=== PATIENT | male | born 1985 | race Caucasian/White ===

== ENCOUNTER 2018-09-05 11:24 | Inpatient (IN) | payer OTHER ==
[2018-09-05] MEDS ORDERED: Nicotine Inhaler* 10 MG AMP INH PRN (12:02)
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
[2018-09-05 12:56] LABS: Urine Appearance Cloudy; Urine Bacteria Absent (Absent); Urine Bilirubin Negative (Negative); Urine Blood Negative (Negative); Urine Color Yellow; Urine Glucose Negative (Negative); Urine Ketones Trace (Negative); Urine Nitrite Negative (Negative); Urine Protein Negative (Negative); Urine Red Blood Cell Absent (Absent); Urine Specific Gravity 1.024 (1.010-1.030); Urine Squamous Epithelial Cell Present (Absent); Urine Urobilinogen Negative (Negative); Urine White Blood Cell Trace(0-5/hpf) (Absent)
[2018-09-05 13:01] LABS: Barbiturates Urine Screen None Detected (None Detect); Benzodiazepine Urine Screen None Detected (None Detect); Urine Cannabinoids Screen None Detected (None Detect)
[2018-09-05 13:39] LABS: Hematocrit 46 % (42-52); Mean Corpuscular HGB Conc 33 g/dl (31-36); Mean Corpuscular Hemoglobin 31 pg (27-31); Mean Corpuscular Volume 93 fL (80-94); Red Cell Distribution Width 14 % (10.5-15); White Blood Count 15.3 10^3/ul (3.5-10.8)
[2018-09-05 13:43] LABS: Albumin 4.6 g/dL (3.2-5.2); CO2 Carbon Dioxide 24 mmol/L (22-32); Calcium 10.2 mg/dL (8.6-10.3); Chloride 102 mmol/L (101-111); Sodium 135 mmol/L (135-145)
[2018-09-05 13:49] LABS: ALT 111 U/L (7-52); Albumin/Globulin Ratio 1.2 (1-3); Alkaline Phosphatase 76 U/L (34-104); Blood Urea Nitrogen 18 mg/dL (6-24); EGFR African American 131.7 (>60); EGFR Non-African American 108.9 (>60); Globulin 3.9 g/dL (2-4); Glucose 96 mg/dL (70-100); Total Protein 8.5 g/dL (6.4-8.9)
[2018-09-05 14:00] LABS: Acetaminophen < 15 mcg/mL; Alcohol < 10 mg/dL (<10); Salicylate < 2.50 mg/dL (<30)
[2018-09-05 14:16] LABS: ABS Basophils 0.1 10^3/ul (0-0.2); ABS Eosinophils 0 10^3/ul (0-0.6); ABS Lymphocytes 1.9 10^3/ul (1.0-4.8); ABS Monocytes 0.9 10^3/ul (0-0.8); ABS Neutrophils 12.5 10^3/ul (1.5-7.7); ABS Nucleated RBC 0 10^3/ul; Eosinophil % 0 %; Lymphocyte % 12.3 %; Nucleated Red Blood Cells % 0.1
[2018-09-05 14:18] LABS: Anion Gap 9 mmol/L (2-11)
[2018-09-05 14:43] LABS: TSH (Thyroid Stimulating Horm) 1.02 mcIU/mL (0.34-5.60)
[2018-09-05] MEDS ORDERED: Nicotine GUM* 2 MG PO PRN (15:53)
[2018-09-05] MEDS ORDERED: Al Hydrox/Mg Hydrox/Simet LIQ* 30 ML UDC PO PRN (15:53)
[2018-09-05] MEDS ORDERED: Haloperidol TAB* 5 MG PO PRN (15:55)
[2018-09-05] MEDS ORDERED: Mouth Piece, Nicotine* 1 EACH CARTRIDGE INH ONE (17:00)
[2018-09-06] MEDS: Gabapentin CAP(*) 300 MG PO SCH ×2 (14:32→20:49)
--- NOTE | 2018-09-06 16:18 | PN ---
BSU: Group Therapy Note - Service Type Service Type: [id number] Group Psychotherapy - Group Participation Patient Participating in Group: No Level of Group Participation: Attentive Relatedness to Group: Other - Additional Group Comments Group Comments: Bubba came late to the group and sat through it to the end but did not participate. He was calm and pleasant and attentive.
--- NOTE | 2018-09-06 16:21 | PN ---
Subjective - Subjective Date of Service: 09/06/18 Service Type: [id number] Hosp care 15 min low complexity Subjective: Please see H&P Plan - Plan Treatment Plan: Name: JASWINDER VILLAR Birthdate: 1985 [id number] Medications: Current Medications Acetaminophen (Tylenol Tab*) 650 mg PO Q4H PRN PRN Reason: for pain; or Temp >101 F Al Hydrox/Mg Hydrox/Simethicone (Maalox Plus*) 30 ml PO Q4H PRN PRN Reason: INDIGESTION Gabapentin (Neurontin Cap(*)) 300 mg PO TID TILA Last Admin: 09/06/18 14:32 Dose: 300 mg Haloperidol (Haldol Tab*) 5 mg PO Q6H PRN PRN Reason: AGITATION Last Admin: 09/06/18 01:00 Dose: 5 mg Nicotine (Nicotine Inhaler*) 10 mg INH Q2H PRN PRN Reason: CRAVING Nicotine Polacrilex (Nicotine Gum*) 2 mg PO Q2H PRN PRN Reason: CRAVING Paliperidone (Invega Er Tab*) 3 mg PO BEDTIME TILA
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
[2018-09-06] MEDS: Paliperidone ER TAB* 3 MG TAB.ER PO SCH (20:49)
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
[2018-09-07 08:29] LABS: HDL Cholesterol 58.6 mg/dL
[2018-09-07] MEDS: Gabapentin CAP(*) 300 MG PO SCH ×3 (09:23→20:44)
--- NOTE | 2018-09-07 11:01 | PN ---
BSU: Group Therapy Note - Service Type Service Type: [id number] Group Psychotherapy - Cognitive Behavioral Group Therapy ( CBT):Patient attended CBT programming this morning and presented with flat affect that did not vary with discussion. Although responsive to direct prompts to respond to questions, patient did not engage in spontaneous conversation.
[2018-09-07] MEDS: Acetaminophen TAB* 325 MG PO PRN (20:44)
[2018-09-07] MEDS: Paliperidone ER TAB* 3 MG TAB.ER PO SCH (20:44)
--- NOTE | 2018-09-07 21:11 | PN ---
Subjective - Subjective Date of Service: 09/07/18 Service Type: [id number] Hosp care 15 min low complexity Subjective: Jaswinder is quiet today. He appears to be happy. He also states that he is feeling well and that his thoughts are clearer. He cannot be more specific. Objective - Appearance Appearance: Healthy Appearing Dysmorphic Features: No Hygiene: Normal Grooming: Well Kept - Behavior Psychomotor Activities: Normal Exhibits Abnormal Movement: No - Attitude and Relatedness Attitude and Relatedness: Cooperative Eye Contact: Good - Speech Quality: Unpressured Latencies: Short Quantity: Terse - Mood Patient's Decription of Mood: "Okay" - Affect Observed Affect: Constricted Affect Consistent with: Euthymia - Thought Process Patient's Thought Process: Coherent Thought Content: No Passive Wish, No Suicidal Planning, No Homicidal Ideation, No Paranoid Ideation - Sensorium Experiencing Hallucinations: No, Sensorium is Clear Type of Hallucinations: Visual: Yes - Not reported by Jaswinder, but reported by staff that he is responding., Auditory: Yes - As above., Command: No - Level of Consciousness Level of Consciousness: Alert Orientation: Yes Intact, Yes Orientated to Time, Yes Orientated to Place, Yes Orientated to Person - Impulse Control Impulse Control: Tenuous - Insight and Judgement Insight and Judgement: Impaired - Group Participation Particating in Group Activities: Yes - Medication Management Medication Management Adherence: Yes Assessment - Assessment Merits Inpatient Hospitalization: For Immediate Safety Clinical Impression: Jaswinder is a 33-year-old white male who comes to the hospital on a voluntary status from [facility] where he was asked to come to the hospital due to bizarre behaviors which included wearing blinders on his glasses and publicly declaring himself to be a racist as well as other behaviors that were not specified by [facility]. Plan - Plan Treatment Plan: Name: JASWINDER VILLAR Birthdate: 1985 [id number] Continued Medication Management: Different Medication Medications: Current Medications Acetaminophen (Tylenol Tab*) 650 mg PO Q4H PRN PRN Reason: for pain; or Temp >101 F Last Admin: 09/07/18 20:44 Dose: 650 mg Al Hydrox/Mg Hydrox/Simethicone (Maalox Plus*) 30 ml PO Q4H PRN PRN Reason: INDIGESTION Gabapentin (Neurontin Cap(*)) 300 mg PO TID TILA Last Admin: 09/07/18 20:44 Dose: 300 mg Haloperidol (Haldol Tab*) 5 mg PO Q6H PRN PRN Reason: AGITATION Last Admin: 09/06/18 01:00 Dose: 5 mg Nicotine (Nicotine Inhaler*) 10 mg INH Q2H PRN PRN Reason: CRAVING Nicotine Polacrilex (Nicotine Gum*) 2 mg PO Q2H PRN PRN Reason: CRAVING Paliperidone (Invega Er Tab*) 3 mg PO BEDTIME [facility] Last Admin: 09/07/18 20:44 Dose: 3 mg - Discharge Plan Discharge Plan: Outpatient Follow Up Additional Comments: Jaswinder will start Ivega 3 mg. He will benefit from a few additional days to see if some of the quietly expressed psychotic symptoms are improving.
[2018-09-08] MEDS: Gabapentin CAP(*) 300 MG PO SCH ×3 (09:31→20:44)
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
--- NOTE | 2018-09-08 15:30 | PN ---
Subjective - Subjective Date of Service: 09/08/18 Service Type: [id number] Hosp care 15 min low complexity Subjective: Jaswinder states he's doing well. He is enjoying some relief now that he has Invega on board. He appears a bit bored and lonely as he is constantly sitting by himself and trying to do complex puzzles. Objective - Appearance Appearance: Healthy Appearing Dysmorphic Features: No Hygiene: Normal Grooming: Well Kept - Behavior Psychomotor Activities: Normal Exhibits Abnormal Movement: No - Attitude and Relatedness Attitude and Relatedness: Superficially Cooperative Eye Contact: Good - Speech Quality: Unpressured Latencies: Normal Quantity: Terse - Mood Patient's Decription of Mood: "Okay" - Affect Observed Affect: Constricted Affect Consistent with: Dysphoria - Thought Process Patient's Thought Process: Coherent Thought Content: No Passive Wish, No Suicidal Planning, No Homicidal Ideation, No Paranoid Ideation - Sensorium Experiencing Hallucinations: No, Sensorium is Clear Type of Hallucinations: Visual: No, Auditory: No, Command: No - Level of Consciousness Level of Consciousness: Alert Orientation: Yes Intact, Yes Orientated to Time, Yes Orientated to Place, Yes Orientated to Person - Impulse Control Impulse Control: Tenuous - Insight and Judgement Insight and Judgement: Impaired - Group Participation Particating in Group Activities: Yes - Medication Management Medication Management Adherence: Yes Assessment - Assessment Merits Inpatient Hospitalization: For Immediate Safety Clinical Impression: Jaswinder is a 33-year-old white male who comes to the hospital on a voluntary status from [facility] where he was asked to come to the hospital due to bizarre behaviors which included wearing blinders on his glasses and publicly declaring himself to be a racist as well as other behaviors that were not specified by [facility]. Plan - Plan Treatment Plan: Name: JASWINDER VILLAR Birthdate: 1985 [id number] Medications: Current Medications Acetaminophen (Tylenol Tab*) 650 mg PO Q4H PRN PRN Reason: for pain; or Temp >101 F Last Admin: 09/07/18 20:44 Dose: 650 mg Al Hydrox/Mg Hydrox/Simethicone (Maalox Plus*) 30 ml PO Q4H PRN PRN Reason: INDIGESTION Gabapentin (Neurontin Cap(*)) 300 mg PO TID [facility] Last Admin: 09/08/18 15:07 Dose: 300 mg Haloperidol (Haldol Tab*) 5 mg PO Q6H PRN PRN Reason: AGITATION Last Admin: 09/06/18 01:00 Dose: 5 mg Nicotine (Nicotine Inhaler*) 10 mg INH Q2H PRN PRN Reason: CRAVING Nicotine Polacrilex (Nicotine Gum*) 2 mg PO Q2H PRN PRN Reason: CRAVING Paliperidone (Invega Er Tab*) 3 mg PO BEDTIME [facility] Last Admin: 09/07/18 20:44 Dose: 3 mg - Discharge Plan Discharge Plan: Outpatient Follow Up Outpatient Program: [facility] Additional Comments: Jaswinder will start Ivega 3 mg. He will benefit from a few additional days to see if some of the quietly expressed psychotic symptoms are improving. Jaswinder does not appear to be suffering from hallucinations today, at least during my interactions with him. Discharge Tuesday to unless further symptoms are revealed. He agrees to continue taking Invega while out of the hospital.
[2018-09-08] MEDS: Paliperidone ER TAB* 3 MG TAB.ER PO SCH (20:44)
[2018-09-09] MEDS: Gabapentin CAP(*) 300 MG PO SCH ×3 (08:35→20:00)
[2018-09-09] MEDS: Acetaminophen TAB* 325 MG PO PRN (11:18)
--- NOTE | 2018-09-09 14:26 | PN ---
Subjective - Subjective Date of Service: 09/09/18 Service Type: [id number] Hosp care 15 min low complexity Subjective: Bubba is seen in weekend coverage for NPP, Anika Power. He is laying in bed , relaxing, and staff report no unusual behaviors. He reports that he is looking forward to possible discharge on Tuesday and believes that he can stay with his father. He is tolerating paliperidone without untoward effects. He denies SI or HI. His exam is unremarkable for thought or behavioral disorganization. Objective - Appearance Appearance: Well Developed/Nourished Dysmorphic Features: No Hygiene: Normal Grooming: Well Kept - Behavior Psychomotor Activities: Normal Exhibits Abnormal Movement: No - Attitude and Relatedness Attitude and Relatedness: Cooperative Eye Contact: Fair - Speech Quality: Unpressured Latencies: Normal Quantity: Terse - Mood Patient's Decription of Mood: "Okay" - Affect Observed Affect: Fair Affect Consistent with: Euthymia - Thought Process Patient's Thought Process: Coherent Thought Content: No Passive Wish, No Suicidal Planning, No Homicidal Ideation, No Paranoid Ideation - Sensorium Experiencing Hallucinations: No, Sensorium is Clear Type of Hallucinations: Visual: No, Auditory: No, Command: No - Level of Consciousness Level of Consciousness: Alert Orientation: Yes Intact, Yes Orientated to Time, Yes Orientated to Place, Yes Orientated to Person - Impulse Control Impulse Control: Tenuous - Insight and Judgement Insight and Judgement: Fair - Group Participation Particating in Group Activities: Yes - Medication Management Medication Management Adherence: Yes Assessment - Assessment Merits Inpatient Hospitalization: Consolidate Improvements, Pending Safe DC Plan Inpatient DSM-V Dx: F29 Clinical Impression: Bubba is a 33-year-old white male who comes to the hospital on a voluntary status from [facility] where he was asked to come to the hospital due to bizarre behaviors which included wearing blinders on his glasses and publicly declaring himself to be a racist as well as other behaviors that were not specified by [facility]. BSU: Problem List - Patient Problems (1) Unspecified psychosis Current Visit: Yes Status: Acute Plan - Plan Treatment Plan: Name: BUBBA VILLAR Birthdate: 1985 [id number] The patient is tolerating paliperidone 3mg PO qhs and is doing better. Target discharge early this coming week. Continued Medication Management: Start Medication Medications: Current Medications Acetaminophen (Tylenol Tab*) 650 mg PO Q4H PRN PRN Reason: for pain; or Temp >101 F Last Admin: 09/09/18 11:18 Dose: 650 mg Al Hydrox/Mg Hydrox/Simethicone (Maalox Plus*) 30 ml PO Q4H PRN PRN Reason: INDIGESTION Gabapentin (Neurontin Cap(*)) 300 mg PO TID [facility] Last Admin: 09/09/18 08:35 Dose: 300 mg Haloperidol (Haldol Tab*) 5 mg PO Q6H PRN PRN Reason: AGITATION Last Admin: 09/06/18 01:00 Dose: 5 mg Nicotine (Nicotine Inhaler*) 10 mg INH Q2H PRN PRN Reason: CRAVING Nicotine Polacrilex (Nicotine Gum*) 2 mg PO Q2H PRN PRN Reason: CRAVING Paliperidone (Invega Er Tab*) 3 mg PO BEDTIME [facility] Last Admin: 09/08/18 20:44 Dose: 3 mg - Discharge Plan Discharge Plan: Inpatient Hospitalization
[2018-09-09] MEDS: Paliperidone ER TAB* 3 MG TAB.ER PO SCH (20:01)
[2018-09-10] MEDS: Gabapentin CAP(*) 300 MG PO SCH ×3 (09:06→20:18)
[2018-09-10] MEDS: Paliperidone ER TAB* 3 MG TAB.ER PO SCH (20:19)
[2018-09-11] MEDS: Gabapentin CAP(*) 300 MG PO SCH ×3 (08:48→22:19)
[2018-09-11] MEDS ORDERED: Paliperidone SUSTENNA* 234 MG/1.5 ML IM ONE (11:27)
--- NOTE | 2018-09-11 12:15 | PN ---
Subjective - Subjective Date of Service: 09/11/18 Service Type: [id number] Hosp care 15 min low complexity Subjective: Jaswinder is seen walking in the antony with a peer, but eagerly agrees to talk. I explain the option of increasing meds or using the injectable form of Invega. He quickly chooses Invega Sustenna and then advocates for himself when it seems that the choice may have been a hurried one. Nevertheless, he remains symptomatic of psychosis. He admits that he hears things that make him laugh to himself and he would like these to stop. Objective - Appearance Appearance: Healthy Appearing Dysmorphic Features: No Hygiene: Normal Grooming: Well Kept - Behavior Psychomotor Activities: Normal Exhibits Abnormal Movement: No - Attitude and Relatedness Attitude and Relatedness: Cooperative Eye Contact: Good - Speech Quality: Unpressured Latencies: Short Quantity: Terse - Mood Patient's Decription of Mood: "Fine" - Affect Observed Affect: Constricted Affect Consistent with: Euthymia - Thought Process Patient's Thought Process: Disorganized Thought Content: Yes Paranoid Ideation, No Passive Wish, No Suicidal Planning, No Homicidal Ideation - Sensorium Experiencing Hallucinations: Yes Type of Hallucinations: Visual: No, Auditory: Yes, Command: No - Level of Consciousness Level of Consciousness: Alert Orientation: Yes Intact, Yes Orientated to Time, Yes Orientated to Place, Yes Orientated to Person - Impulse Control Impulse Control: Impaired - Insight and Judgement Insight and Judgement: Impaired - Group Participation Particating in Group Activities: Yes - Medication Management Medication Management Adherence: Yes Assessment - Assessment Merits Inpatient Hospitalization: For Immediate Safety, For Stabilization, For Discharge Planning Inpatient DSM-V Dx: F29 Clinical Impression: Jaswinder is a 33-year-old white male who comes to the hospital on a voluntary status from [facility] where he was asked to come to the hospital due to bizarre behaviors which included wearing blinders on his glasses and publicly declaring himself to be a racist as well as other behaviors that were not specified by [facility]. Plan - Plan Treatment Plan: Name: JASWINDER VILLAR Birthdate: 1985 [id number] The patient is tolerating paliperidone 3mg PO qhs and is doing better. Target discharge early this coming week. Medications: Current Medications Acetaminophen (Tylenol Tab*) 650 mg PO Q4H PRN PRN Reason: for pain; or Temp >101 F Last Admin: 09/09/18 11:18 Dose: 650 mg Al Hydrox/Mg Hydrox/Simethicone (Maalox Plus*) 30 ml PO Q4H PRN PRN Reason: INDIGESTION Gabapentin (Neurontin Cap(*)) 300 mg PO TID [facility] Last Admin: 09/11/18 08:48 Dose: 300 mg Nicotine (Nicotine Inhaler*) 10 mg INH Q2H PRN PRN Reason: CRAVING Nicotine Polacrilex (Nicotine Gum*) 2 mg PO Q2H PRN PRN Reason: CRAVING Paliperidone Palmitate (Invega Sustenna*) 156 mg IM ONCE ONE Stop: 09/14/18 12:01 - Discharge Plan Discharge Plan: Outpatient Follow Up Outpatient Program: [facility] Additional Comments: Jaswinder started Ivega 3 mg. His symptoms may have diminished slightly, but he is still seen giggling to himself so a dose of Invega Sustenna 234 today and 156 mg on will be useful. At that point, he can be discharged.
[2018-09-11] MEDS: Acetaminophen TAB* 325 MG PO PRN (14:07)
[2018-09-12] MEDS: Gabapentin CAP(*) 300 MG PO SCH ×3 (07:30→21:04)
--- NOTE | 2018-09-12 10:45 | PN ---
BSU: Group Therapy Note - Service Type Service Type: [id number] Group Psychotherapy - Cognitive Behavioral Group Therapy ( CBT):Patient presented in CBT programming as disorganized and disruptive in discussion and needed repeated redirection to attend to presented materials.
[2018-09-12] MEDS: Acetaminophen TAB* 325 MG PO PRN (15:18)
[2018-09-13] MEDS: Gabapentin CAP(*) 300 MG PO SCH ×3 (07:36→20:21)
--- NOTE | 2018-09-13 11:49 | PN ---
BSU: Group Therapy Note - Service Type Service Type: [id number] Group Psychotherapy - Cognitive Behavioral Group Psychotherapy Note: Bubba continues to present with rather odd or bizarre presentation at times, appearing to respond to internal stimuli. His comments were coherent in the context of responding to direct questions, but he tends to be very direct, without spontaneous discussion.
--- NOTE | 2018-09-13 16:18 | PN ---
BSU: Group Therapy Note - Service Type Service Type: [id number] Group Psychotherapy - Medication Education Group: Patient attended group and presented with flat affect that did not vary with discussion. Although responsive to direct prompts to respond to questions, patient did not engage in spontaneous conversation.
--- NOTE | 2018-09-13 19:30 | PN ---
Subjective - Subjective Date of Service: 09/13/18 Service Type: [id number] Hosp care 15 min low complexity Subjective: Jaswinder is doing well today. He seems lost in thought much of the time, but cannot say what he's thinking about. "Just whatever," he says. He is preparing to be discharged tomorrow and is eager to leave. On the other hand, he is comfortable in this setting and states he would like to perhaps visit in the future. While he knows that this is not an option, he would still like to say goodbye to everyone. Jaswinder gives indications that he is still hearing voices, but he remains quiet about them. Objective - Appearance Appearance: Healthy Appearing Dysmorphic Features: No Hygiene: Normal Grooming: Well Kept - Behavior Psychomotor Activities: Normal Exhibits Abnormal Movement: No - Attitude and Relatedness Attitude and Relatedness: Cooperative Eye Contact: Good - Speech Quality: Unpressured Latencies: Short Quantity: Terse - Mood Patient's Decription of Mood: "Good" - Affect Observed Affect: Constricted Affect Consistent with: Euthymia - Thought Process Patient's Thought Process: Coherent Thought Content: No Passive Wish, No Suicidal Planning, No Homicidal Ideation, No Paranoid Ideation - Sensorium Experiencing Hallucinations: Yes Type of Hallucinations: Visual: No, Auditory: Yes, Command: No - Level of Consciousness Level of Consciousness: Alert Orientation: Yes Intact, Yes Orientated to Time, Yes Orientated to Place, Yes Orientated to Person - Impulse Control Impulse Control: Intact - Insight and Judgement Insight and Judgement: Impaired - Group Participation Particating in Group Activities: Yes - Medication Management Medication Management Adherence: Yes Assessment - Assessment Merits Inpatient Hospitalization: For Immediate Safety, For Discharge Planning Inpatient DSM-V Dx: F29 Clinical Impression: Jaswinder is a 33-year-old white male who comes to the hospital on a voluntary status from [facility] where he was asked to come to the hospital due to bizarre behaviors which included wearing blinders on his glasses and publicly declaring himself to be a racist as well as other behaviors that were not specified by [facility]. Plan - Plan Treatment Plan: Name: JASWINDER VILLAR Birthdate: 1985 [id number] Medications: Current Medications Acetaminophen (Tylenol Tab*) 650 mg PO Q4H PRN PRN Reason: for pain; or Temp >101 F Last Admin: 09/12/18 15:18 Dose: 650 mg Al Hydrox/Mg Hydrox/Simethicone (Maalox Plus*) 30 ml PO Q4H PRN PRN Reason: INDIGESTION Gabapentin (Neurontin Cap(*)) 300 mg PO TID [facility] Last Admin: 09/13/18 13:44 Dose: 300 mg Nicotine (Nicotine Inhaler*) 10 mg INH Q2H PRN PRN Reason: CRAVING Last Admin: 09/13/18 07:36 Dose: 10 mg Nicotine Polacrilex (Nicotine Gum*) 2 mg PO Q2H PRN PRN Reason: CRAVING Last Admin: 09/13/18 07:36 Dose: 2 mg Paliperidone Palmitate (Invega Sustenna*) 156 mg IM ONCE ONE Stop: 09/14/18 12:01 - Discharge Plan Discharge Plan: Outpatient Follow Up Outpatient Program: [facility] Additional Comments: Jaswinder started Ivega 3 mg. His symptoms may have diminished slightly, but he is still seen giggling to himself so a dose of Invega Sustenna 234 today and 156 mg on will be useful. At that point, he can be discharged. The [facility] program is offered to him as is the [facility]. He appears to be receptive to these options.
[2018-09-14 08:37] VITALS: BP 111/66
[2018-09-14] MEDS: Gabapentin CAP(*) 300 MG PO SCH (08:54)
--- NOTE | 2018-09-14 11:39 | PN ---
BSU: Group Therapy Note - Service Type Service Type: [id number] Group Psychotherapy - Cognitive Behavioral Group Therapy ( CBT):Patient was attentive and participatory in CBT programming this morning, and remained in good behavioral control. Patient expressed positive insights regarding relevant treatment interventions and goals.
[2018-09-14] MEDS ORDERED: Paliperidone SUSTENNA* 156 MG/1 ML IM ONE (12:00)
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
== END 2018-09-14 12:15 | disposition home or self-care (01) | DRG 751 ==
LOC: ED 11:24 → BSU 15:53 → MERGE 15:53
PROVIDERS: ADMIT Psychiatry & Neurology Psychiatry; ATTEND Psychiatry & Neurology Psychiatry
PROC: 4A10X4Z Monitoring of Central Nervous Electrical Activity, External Approach (ICD-10-PCS; principal; 2018-09-06)
PROC: GZHZZZZ Group Psychotherapy (ICD-10-PCS; 2018-09-07)
DX: F29 Unspecified psychosis not due to a substance or known physiological condition (principal); F17.200 Nicotine dependence, unspecified, uncomplicated; R40.2362 Coma scale, best motor response, obeys commands, at arrival to emergency department; R40.2142 Coma scale, eyes open, spontaneous, at arrival to emergency department; R40.2252 Coma scale, best verbal response, oriented, at arrival to emergency department; Z88.0 Allergy status to penicillin; Z56.0 Unemployment, unspecified
CPT/HCPCS: 36415; 70551; 80053; 80061; 80307; 80320; 80329; 81003; 81015; 83036; 84443; 85025; 87086; 90853; 95819; 96130; 99222; 99231; 99238; 99284; A9270-GY; G0480; J2426